=== PATIENT | male | born 1975 | race Caucasian/White ===

== ENCOUNTER → 2019-09-26 | Outpatient (CLI) | payer OTHER ==
[~2019-09-26] MED LIST: VENTOLIN IH ONE
== END | disposition home or self-care (01) ==
LOC: RT 13:48
PROVIDERS: ATTEND Nurse Practitioner Family
DX: R06.02 Shortness of breath (principal); R10.11 Right upper quadrant pain
CPT/HCPCS: 94060; J7613

== ENCOUNTER → 2019-10-01 | Outpatient (CLI) | payer OTHER ==
--- NOTE | 2019-10-01 12:58 | DIREP ---
PROCEDURE:US ABDOMEN LIMITED (SINGLE ORGAN - QUAD) COMPARISON:None. INDICATIONS:R10.11 RUQ ABD PAIN TECHNIQUE:High resolution sonographic examination was performed of the abdomen. FINDINGS: PANCREAS:The pancreas is largely obscured by bowel gas shadowing. LIVER:Increased hepatic echotexture consistent with hepatic steatosis. No focal hepatic lesion is identified. Hepatopetal flow in the portal vein. Normal spectral waveform on the portal vein. GALLBLADDER:Nondilated. Multiple echogenic foci along the gallbladder wall may represent polyps or adherent sludge balls, measure up to 7 mm. There is sludge present in the dependent portion of the gallbladder. No evidence for gallbladder wall thickening or pericholecystic fluid. No sonographic Delgado's sign. BILIARY:There is no biliary ductal dilatation. RIGHT KIDNEY:Normal. No hydronephrosis. OTHER:Negative. No ascites is identified. CBD:0.3 cm GALLBLADDER WALL: 0.4 cm RIGHT KIDNEY: 10.2 x 5.0 x 6.2 cm CONCLUSION: 1. Nondilated gallbladder with multiple adherent sludge balls versus polyps. Although recommendations vary, serial sonographic follow-up at 3, 6 and 12 months is recommended given size of the largest potential polyp. 2. Hepatic steatosis. Dictated by: HECTOR Physician on 10/01/2019 at 12:32 PM
== END | disposition home or self-care (01) ==
LOC: RAD 09:55
PROVIDERS: ATTEND Nurse Practitioner Family
DX: R10.11 Right upper quadrant pain (principal)
CPT/HCPCS: 76705

== ENCOUNTER → 2019-12-06 | Outpatient (CLI) | payer OTHER ==
--- NOTE | 2019-12-06 09:16 | DIREP ---
PROCEDURE:CHEST 2 VIEWS COMPARISON:None. INDICATIONS:R05 COUGH FINDINGS: LUNGS/PLEURA:No significant pulmonary parenchymal abnormalities. No effusions. VASCULATURE:Normal. Unremarkable pulmonary vasculature. CARDIAC:Normal. No cardiac silhouette abnormality or cardiomegaly. MEDIASTINUM:Normal. No visible mass or adenopathy. BONES:Normal. No fracture or visible bony lesion. OTHER:Negative. CONCLUSION:Normal examination. Dictated by: Mainor Valera MD on 12/06/2019 at 09:11 AM
--- NOTE | 2019-12-06 09:24 | DIREP ---
PROCEDURE:XRAY RIBS 3VWS-LT COMPARISON:[facility], , XRAY CHEST 2 VWS, 12/06/2019, 08:52 AM. INDICATIONS:R07.81 RIB PAIN ON LEFT SIDE FINDINGS: RIBS:Suspected posterior-lateral 6th rib fracture. OTHER:No additional findings. CONCLUSION:Subtle posterior-lateral 6th rib fractures suspected. Dictated by: Mainor Valera MD on 12/06/2019 at 09:21 AM
--- NOTE | 2019-12-06 11:39 | DIREP ---
PROCEDURE:CT ABDOMEN/PELVIS W + W/O CONTRAST COMPARISON:None. INDICATIONS:R10.84 ABD PAIN TECHNIQUE:Axial images were created through the abdomen and pelvis with and without intravenous contrast material. Oral contrast was administered. Sagittal and coronal reconstructions were performed from source images. The study was reviewed on abdominal, lung, liver and bone windows. FINDINGS: LUNG BASES:Normal. No visible pulmonary or pleural disease. LIVER:Mild fatty infiltration of the liver. The portal vein is patent. BILIARY:Normal. No visible dilatation or calcification. PANCREAS:Normal. No lesion, fluid collection, ductal dilatation, or atrophy. SPLEEN:Normal. No enlargement or focal lesion. ADRENALS:Normal. No mass or enlargement. URINARY TRACT:Normal. No focal lesions or hydronephrosis. No renal calculi. No radiopaque renal stones are seen on the noncontrast CT. Symmetrical enhancement of the kidneys. No hydronephrosis is seen. AORTA/VASCULAR:Normal. No aneurysm. RETROPERITONEUM:Normal. No mass or adenopathy. BOWEL/MESENTERY:Normal. There is no intestinal obstruction, free fluid, free air or mesenteric inflammatory changes. The appendix is visualized on coronal image number 48, sagittal image number 37 and transaxial image number 69. Moderate amount of retained gas and fecal matter in the colon. No pericecal inflammatory changes are seen. No diverticulitis, free air or free fluid is seen. No colonic wall thickening is identified. Stomach is mildly distended with contrast. No small bowel obstruction is seen. ABDOMINAL WALL:Normal. No mass or hernia. PELVIC ORGANS:Normal. No visible mass. Pelvic organs appropriate for patient age. BONES:Normal for age. No bony lesion or acute fracture. OTHER:Negative. CONCLUSION: No evidence for cholelithiasis, cholecystitis or pancreatitis. On the noncontrast CT, no renal stones are seen. Symmetrical enhancement of the kidneys. No hydronephrosis is seen. Moderate constipation. Normal appearing appendix. No diverticulitis, free air or free fluid is seen. Dictated by: Je Olivia MD on 12/06/2019 at 11:33 AM
== END | disposition home or self-care (01) ==
LOC: RAD 08:43
PROVIDERS: ATTEND Nurse Practitioner Family
DX: K59.00 Constipation, unspecified (principal); R07.81 Pleurodynia; R10.84 Generalized abdominal pain; R05 Cough
CPT/HCPCS: 71046; 71100; 74178; Q9965